=== PATIENT | female | born 1950 | race Caucasian/White ===

== ENCOUNTER 2022-02-27 | Outpatient (REF) | payer MEDICARE, SELFPAY | END 2022-02-27 00:01 | disposition home or self-care (01) | LOC: HO.MMNH1L | PROVIDERS: Visit Provider Family Medicine | DX: Z13.89 Encounter for screening for other disorder (principal) ==

== ENCOUNTER 2022-02-27 07:05 | Emergency (ER) | payer MEDICARE, SELFPAY ==
--- NOTE | 2022-02-27 | ECG_ITS ---
Test Reason : CARDIAC ARREST Blood Pressure : / mmHG Vent. Rate : 038 BPM Atrial Rate : 000 BPM P-R Int : 000 ms QRS Dur : 192 ms QT Int : 558 ms P-R-T Axes : 000 123 005 degrees QTc Int : 443 ms Marked sinus bradycardia with first degree AV block Right bundle branch block Abnormal ECG No previous ECGs available Referred By: Yuriy Recinos Electronically Signed By:Murphy Fisher
[2022-02-27 07:29] LABS: Glucose, Whole Blood 130 mg/dL (60-115)
--- NOTE | 2022-02-27 07:37 | PC.NURSE ---
darian from [facility] case #[id number] states they will accept the pt, requires more info such as family contact. will call back in 1 hour.
--- NOTE | 2022-02-27 07:41 | ED_ITS ---
HPI - CPR General Chief Complaint: Cardiac Arrest/CPR Stated Complaint: cardiac arrest Time Seen by Provider: 02/27/22 07:40 Source: EMS Mode of arrival: EMS Limitations: altered mental status (Cardiac arrest.) History of Present Illness HPI narrative: 71 years old female came to the hospital as a cardiac arrest from dialysis center. Patient was receiving her dialysis session when was found by the nurse elaine esqueda with no pulse EMS were called on arrival patient was asystole was given epinephrine, then turn into VFib received 2 shocks and 300 mg of amiodarone patient also was given calcium and bicarbonate patient remained asystole with no holes, patient was intubated at the scene by EMS and transported to the hospital. On arrival to the ED CPR was in progress, patient was given in the ED epinephrine x2, 2 amps of bicarb, 10 mg of calcium gluconate, 1 amp of glucose with continuing CPR, patient regained pulse and cardiac activity for about 10 minutes then patient started to bradycardic again and became asystole, patient had fixed dilated bilateral pupil was no reflexes, no spontaneous breathing, no cardiac activity on ultrasound. Patient was pronounced at 07:20 a.m., I notified the Wilmer at phone number [phone] was able to obtain some medical history from the patient was recently at [facility] with history of diabetes and pneumonia, patient recently started dialysis about 10 days ago, patient was treated for pneumonia at [facility] as per . Related Data Allergies Allergy/AdvReac Type Severity Reaction Status Date / Time Unable to Assess Allergy Verified 02/27/22 08:27 Review of Systems Review of Systems: Yes Unobtainable due to mental condition (Cardiac arrest) REPLACED BY [facility] Social History Social History Advance Directives: No Advance Directives Information Provided: No Physical Exam Vital Signs: Vital Signs: General: Patient unresponsive, intubated. HEENT: Pupil is 4 mm fixed and dilated bilaterally, no facial trauma, intubated with frothy exudate via the ET tube. No sign of head trauma. Chest/lung exam: Intubated with no spontaneous breathing. No wheezing, bilateral basilar rales. Right subclavian triple-lumen central line. Heart: No cardiac activity. No pulse. Abdomen: Slightly distended, no sign of trauma. Extremities: Diffuse ecchymosis in both arms likely from recent hospitalization. Neurology: Pupil are dilated bilaterally no DTR. Course Course Course Narrative: 71-year-old female with history of renal failure on dialysis patient had cardiac arrest while receiving her dialysis , was notified via phone, mg was notified and case was declined which by Jeannette Gonzalez. MDM - Cardiac Arrest/CPR Lab Data Labs: Lab Results 02/27/22 Range/Units 07:11 POC Glucose 130 H (60-115) mg/dL Discharge Plan Discharge Clinical Impression: Cardiac arrest Patient Disposition:
--- NOTE | 2022-02-27 08:02 | PC.NURSE ---
ME contacted and declined case -
[2022-02-28 08:24] LABS: Glucose, Whole Blood 123 mg/dL (60-115)
== END 2022-02-27 10:06 | disposition expired ==
PROVIDERS: Emergency Provider Emergency Medicine; PCP Family Medicine
DX: I46.9 Cardiac arrest, cause unspecified (principal); E11.22 Type 2 diabetes mellitus with diabetic chronic kidney disease; N18.6 End stage renal disease; Z99.2 Dependence on renal dialysis
CPT/HCPCS: 82947; 93005; 96374; 96375; 99282; 99285; J0171